=== PATIENT | female | born 1955 | race Caucasian/White ===

== ENCOUNTER 2023-02-09 13:04 | Outpatient (CLI) | payer OTHER, MEDICARE, SELFPAY ==
[2023-02-09 13:46] LABS: Anion Gap 9 mmol/L (8-16); Blood Urea Nitrogen 7 mg/dL (7-17); Calcium 8.8 mg/dL (8.4-10.2); Carbon Dioxide 25 mmol/L (22-30); Chloride 105 mmol/L (98-107); Estimated Glomerular Filt Rate > 60; Glucose 111 mg/dL (65-110); Potassium 3.9 mmol/L (3.4-5.0); Sodium 139 mmol/L (137-145)
== END 2023-02-09 13:05 | disposition home or self-care (01) ==
LOC: ANHSURGERY 13:09
PROVIDERS: Anesthesiology; PCP Nurse Practitioner Family; Visit Provider Surgery
DX: E11.9 Type 2 diabetes mellitus without complications (principal); Z01.818 Encounter for other preprocedural examination
CPT/HCPCS: 36415; 80048

== ENCOUNTER 2023-02-16 03:14 | Day surgery (SDC) | payer MEDICARE, OTHER, SELFPAY ==
[2023-02-08 15:35] VITALS: BMI 34.2
--- NOTE | 2023-02-08 15:44 | PC.NURSE ---
PRE-OP INSTRUCTIONS, PLEASE READ CAREFULLY Report to the Outpatient Waiting Room, entrance under the green pavilion located off [facility], at time _1 PM_ on date _02/16/23_. Planned Procedure Time: _3 PM__. Time changes happen often and if your time is changed the preop area will call you the afternoon before. - You and your visitor will be asked to self-screen and do not enter if you have any COVID symptoms. - A mask is optional within the hospital at this time. Patients may have clear liquids (water, carbonated beverages, clear teas, apple juice) until 3 hours prior to surgery (1200 NOON) with a maximum of 20 ounces. - No food from midnight until time of surgery Take the following medications with a SIP of water the morning of surgery: __NONE____ DO NOT STOP ANY OF YOUR OTHER PRESCRIPTION MEDICATIONS PRIOR TO SURGERY ?EXCEPT THE FOLLOWING Medications to discontinue per physician ____NONE Date to take last dose Please no make-up, nail thai, hairspray, perfume, deodorant, or body powder the day of surgery. No jewelry (including any body piercings) or valuables the day of surgery, leave them at home. Please take a shower or bath the night before, or the morning of, surgery with an antibacterial soap. Wear comfortable, loose fitting clothing. - Jewelry must be removed prior to entering the operating room. Rings and piercings that are not removed may be cut off. - The hospital will not accept responsibility for valuables. - Please leave all valuables, including medications, at home the day of surgery. If you are going home after surgery, a licensed rental car ferry driver must drive you home. - NO public transportation without another adult if you receive anesthesia. - We recommend that an adult stay with you for 24 hours following discharge. - We also recommend that you do not drive, make important decision, drink alcoholic beverages, or take any drugs that were not prescribed by your health care provider for at least 24 hours after your discharge time. Follow any additional instructions given to you from your surgeon. If you or anyone in your household have experienced Covid symptoms in the past week, please notify your surgeon or the nurse liaison at the phone number below for possible testing. Telephone instructions given to _PATIENT_and asked if any additional questions and then verbalized understanding. Patient advised to call surgeon office or pre surgery nurse liaison [phone] if any additional questions.
[2023-02-16 14:16] LABS: Glucose Point of Care 135 mg/dl (65-105)
[2023-02-16 14:30] VITALS: BP 142/81; PULSE 81; RESP 16; TEMP 36.2; O2SAT 99
--- NOTE | 2023-02-16 14:55 | WPDANESEPPF ---
Anes - Initial Pre Proc Eval Procedure: Operation Date: 02/16/23 15:30 Proposed Procedures p Excision Left Posterior Shoulder Subcutaneous Mass - Radames Patricio MD Date/Time: 02/16/23 14:55 Surgeon: Radames Patricio MD Pre Op Diagnosis: left shoulder subcutaneous mass Patient Data Age: 67 Gender: F Height: 1.52 m Weight: 79.54 kg Allergies Allergy/AdvReac Type Severity Reaction Status Date / Time codeine Allergy Unknown UNABLE TO Verified 02/16/23 14:59 RECALL Home Medications Medication Instructions Recorded Confirmed Type metformin 500 mg tablet,extended 500 mg PO BID 02/08/23 02/16/23 History release 24 hr rosuvastatin 10 mg tablet 10 mg DAILY 02/08/23 02/16/23 History Laboratory Tests 02/16/23 14:14 POC Capillary Glucose 135 H mg/dl (65-105) Patient hx anesthesia problems: other (hx difficult intubation - front tooth chipped during prior surgery) Family hx anesthesia problems: none Results Review: All pre-operative results and documents have been reviewed as part of the pre-operative evaluation. FORMERLY [facility], [facility]1983 Past Medical History Medical History (Updated 01/26/23 @ 11:17 by Jeanne Harry) Essential hypertension GERD (gastroesophageal reflux disease) Hyperglycemia Mass of shoulder region Onychomycosis Surgical History Surgical History (Updated 01/26/23 @ 10:42 by Sloane Stephens MA) History of cholecystectomy History of rotator cuff surgery Previous section Social History Social History (Updated 01/26/23 @ 10:48 by Sloane Stephens MA) Smoking status: Never smoker Second hand tobacco smoke exposure: No Alcohol intake: current Drinks per week: 5 Substance use: current Substance use type: marijuana Other substance usage details: EDIBLES 10MG/WEEK Last use: 02/07/23 Living arrangements: with family Occupation/Education: retired Spiritual care concerns: No Anes - Eval Final PreProcedure Day of Procedure 02/16/23 14:55 Patient weight: obese Heart: regular rate and rhythm Lungs: clear to auscultation Airway: Mallampati scale class II Neurological: alert and oriented Last oral intake: >/= 8 hours ASA classification: III Emergent: no Anesthetic plan: proceed Anesthesia type and monitoring: general GIVS and standard monitoring Results Review: All pre-operative results and documents have been reviewed as part of the pre-operative evaluation. Informed Consent: The patient's anesthetic plan and its attendant risks and benefits were discussed with the patient/family/POA. Questions were solicited and answers provided to the satisfaction of the patient/family/POA.
[2023-02-16] MEDS: BUPivacaine HCL 0.5% PF 30 ML VIAL INFILTRATE (16:59)
[2023-02-16] MEDS: LIDO 1%/EPINEPHRINE 1:100,000 50 ML VIAL 10 ML INFILTRATE (16:59)
--- NOTE | 2023-02-16 17:05 | WPDHPUPDATE1 ---
History and Physical Update Update Date/Time: 02/16/23 17:05 History and Physical has been reviewed, including an updated exam of the patient. There are NO changes in the patient's condition. Risks, benefits, and alternatives have been discussed and questions answered. Patient agrees to proceed with procedure.
[2023-02-16 17:13] LABS: Glucose Point of Care 122 mg/dl (65-105)
[2023-02-16] MEDS: LACTATED RINGERS 1,000 ML 30 ML IV CONT ×2 (18:45→19:39)
--- NOTE | 2023-02-16 19:10 | SUR.PREOP ---
PATIENT LEFT FOR THE OR AT 1900.
[2023-02-16 19:39] VITALS: BP 110/73; PULSE 88; RESP 18; O2SAT 96
--- NOTE | 2023-02-16 19:42 | P.OP_ITS ---
Procedure Note - Detailed Date of Procedure 02/16/23 Pre-op Diagnosis left shoulder subcutaneous mass Post-op Diagnosis Same Procedure Performed Excision of posterior left shoulder lipoma. Surgeon Radames Patricio MD [employer] [facility] Anest[facility] MAC Indications Patient is a 67-year-old female presented with a slowly enlarging subcutaneous mass in the posterior left shoulder. Clinically was consistent with a lipoma. She presents now for excision. Findings [id number] lipomatous mass consistent with benign lipoma left posterior shoulder. Lipoma was well encapsulated and limited to the subcutaneous tissues. Description of Procedure After informed consent was obtained patient brought to the operating room where she was placed in the right lateral decubitus position after placement under IV sedation with LMA. There the posterior left shoulder was then prepped and draped in usual sterile fashion. Care was taken make sure all the pressure points well padded. A time-out was then performed correctly identifying the patient as well as procedure to be performed. Site marking was verified and she was given some perioperative IV antibiotics. Then proceeded to anesthetize the area with 1% lidocaine mixed with 0.5% Marcaine with some epinephrine. A transverse incision was then made over the palpable lipomatous mass. Dissection was carried down through the dermis skin with a scalpel electrocautery was used to dissect down through the subcutaneous tissues to the capsule the lipoma was encountered. The lipomas well-circumscribed and with a combination of electrocautery blunt finger dissection the capsule lipoma from the surrounding subcutaneous tissues. I then completely excised out the lipoma from the subcutaneous tissues utilizing the cautery. The lipoma was confined to the subcutaneous tissues. It was measured 5cm in length by 4cm in width by 2cm in depth. It was sent to pathology for examination. I then irrigated out the incision sterile saline solution and hemostasis was achieved electrocautery. Incision was then closed utilizing interrupted 2-0 Vicryl sutures in the deeper subcutaneous tissues. Interrupted 3-0 Vicryl sutures were placed in deep dermal layer. The skin edges were then approximated lies in a running subcuticular 3-0 Monocryl suture. The incision was then cleaned the skin glue was applied. The patient tolerated the procedure well no complications. All sponges, needles, and instrument counts were correct at the end procedure. EBL was _5__cc. The patient was awakened and taken to recovery in stable and satisfactory condition. Implants None Estimated Blood Loss 5 Drains No Packing No Pathology Yes (Lipoma sent to pathology) Complications No immediate complications Condition Stable Disposition PACU [facility] Billing Surgery - Charge Forward: Surgery Billing
[2023-02-16 19:55] LABS: Glucose Point of Care 133 mg/dl (65-105)
[2023-02-16 20:00] VITALS: BP 120/71; PULSE 78; RESP 18
[2023-02-16 20:26] VITALS: BP 119/73; PULSE 77; RESP 16
== END 2023-02-16 20:33 | disposition home or self-care (01) ==
PROVIDERS: PCP Nurse Practitioner Family; Visit Provider Surgery
PROC: (CPT 23071; principal; 2023-02-16 15:30)
DX: D17.22 Benign lipomatous neoplasm of skin and subcutaneous tissue of left arm (principal); K21.9 Gastro-esophageal reflux disease without esophagitis; I10 Essential (primary) hypertension
CPT/HCPCS: 23071; 36415; 80048; 82948; 88304; A9270; J2250; J2405; J2704; J3010; J7120

== ENCOUNTER 2023-09-24 11:15 | Emergency (ER) | payer MEDICARE, OTHER, SELFPAY ==
--- NOTE | ~2023-09-24 | XR_ITS ---
EXAMINATION: [id number] DATE: 09/24/2023 11:46 INDICATION: Right posterior and lateral rib pain post fall from horse TECHNIQUE: A frontal inspiratory view of the chest and 3 views of the right ribs were obtained. COMPARISON: None FINDINGS: Subtle linear lucency corresponding to a nondisplaced fracture at the posterolateral right seventh ri b. There is mild associated underlying suggesting small associated chest wall hematoma. No other airs pace opacities, pulmonary edema, pleural effusion or pneumothorax. The mediastinal silhouette is norm al. Cholecystectomy clips at the right upper quadrant. IMPRESSION: 1. Nondisplaced fracture of the posterolateral right seventh rib. No pneumothorax or other acute card iopulmonary disease. Reviewed, dictated and finalized at location B. IMPRESSION: 1. Nondisplaced fracture of the posterolateral right seventh rib. No pneumothor ax or other acute cardiopulmonary disease.
[2023-09-24 11:26] VITALS: BP 142/78; PULSE 82; RESP 16; TEMP 37.2; O2SAT 99
--- NOTE | 2023-09-24 12:01 | ED.GENADULT ---
HPI - General Adult General Chief complaint: Back Pain/Injury Stated complaint: INJURED R RIBS Time Seen by Provider: 09/24/23 11:52 Source: patient and RN notes reviewed Mode of arrival: ambulatory Limitations: no limitations History of Present Illness HPI narrative: Patient presents today complaining of right posterior rib pain. Five days ago she fell off her horse injuring her ribs. States she had a helmet on and did not sustain head injury. Denies pain anywhere else on her body. Denies shortness of breath. Currently rates her pain 4/10. Related Data Home Medications Medication Instructions Recorded Confirmed dapagliflozin propanediol 10 mg 10 mg DIRECTED 09/24/23 09/24/23 tablet (Farxiga) rosuvastatin 10 mg tablet 10 mg DIRECTED 09/24/23 09/24/23 Allergies Allergy/AdvReac Type Severity Reaction Status Date / Time codeine Allergy Unknown UNABLE TO Verified 03/02/23 10:29 RECALL Review of Systems Review of Systems: CONSTITUTIONAL: Denies body aches, fever, chills, or sweats. EYES: Denies visual changes, redness, or discharge. ENT: Denies rhinorrhea, congestion, sore throat, or otalgia. CARDIOVASCULAR: Denies chest pain, palpitations, or edema. RESPIRATORY: Denies cough or dyspnea. GASTROINTESTINAL: Denies abdominal pain, nausea, vomiting, or diarrhea. GENITOURINARY: Denies dysuria or hematuria. SKIN: Denies rash, itching, or wounds. MUSCULOSKELETAL: + right posterior rib pain NEUROLOGIC: Denies headache, numbness, tingling, or weakness. PSYCH: Denies depression or anxiety. [facility] Past Medical History Medical History Essential hypertension GERD (gastroesophageal reflux disease) Hyperglycemia Mass of shoulder region Onychomycosis Surgical History Surgical History H/O excision of mass L shoulder History of cholecystectomy History of rotator cuff surgery Previous section Social History Social History Smoking status: Never smoker Second hand tobacco smoke exposure: No Alcohol intake: current Drinks per week: 5 Substance use: current Substance use type: marijuana Other substance usage details: EDIBLES 10MG/WEEK Last use: 02/07/23 Living arrangements: with family Occupation/Education: retired Spiritual care concerns: No Comments At time of signature, I have reviewed and agree with nursing past medical, surgical, social and family history unless otherwise noted. Please see nursing chart for further information. There is no relevant family history pertinent to the presenting complaint Exam Narrative: GENERAL: Well-appearing, well-nourished, and in no acute distress. HEAD: Normocephalic, atraumatic. EYES: EOMI. No redness or drainage. ENT: Mucous membranes pink and moist. NECK: Normal AROM. CHEST: No respiratory distress. Clear to auscultation. HEART: Regular rate and rhythm. No murmur appreciated. MUSCULOSKELETAL: Patient refused palpation of the area of pain, unable to assess. EXTREMITIES: Normal range of motion. No edema. SKIN: Warm, dry, no rash. Capillary refill normal. Normal skin turgor. NEURO: No focal deficits. Alert and oriented x3. Gait steady. PSYCH: Normal affect. No signs of depression or anxiety. Course Course Level of Care: Express Care Visit Vital Signs Vital signs: Vital Signs Temperature 98.9 F 09/24/23 11:26 Pulse Rate 82 09/24/23 11:26 Respiratory Rate 16 09/24/23 11:26 Blood Pressure 142/78 H 09/24/23 11:26 Pulse Oximetry 99 09/24/23 11:26 Temperature 98.9 F 09/24/23 11:26 Pulse Rate 82 09/24/23 11:26 Respiratory Rate 16 09/24/23 11:26 Blood Pressure 142/78 H 09/24/23 11:26 Pulse Oximetry 99 09/24/23 11:26 Reviewed Medical Decision Making MDM Narrative Medical decision making n
== END 2023-09-24 12:18 | disposition home or self-care (01) ==
PROVIDERS: Emergency Provider Nurse Practitioner; PCP Internal Medicine
DX: S22.31XA Fracture of one rib, right side, initial encounter for closed fracture (principal); V80.010A Animal-rider injured by fall from or being thrown from horse in noncollision accident, initial encounter; I10 Essential (primary) hypertension; K21.9 Gastro-esophageal reflux disease without esophagitis; F12.90 Cannabis use, unspecified, uncomplicated
CPT/HCPCS: 71101; 99213; G0463

== ENCOUNTER 2024-02-02 09:09 | Outpatient (CLI) | payer MEDICARE, OTHER, SELFPAY ==
--- NOTE | ~2024-02-02 | XR_ITS ---
XR hip LT 2V w AP pelvis Ordering provider: Rony Sanchez MD History: . S32.592A - FOLLOW UP PUBIS FRACTURE 12/24/23 . Comparison: January 05, 2024 FINDINGS: BONES: Fracture of the left inferior pubic ramus. Highly suggestive fracture in the superior pubic ra mus near to the acetabulum. HIP JOINT SPACES: Mild osteoarthritic changes of both hips. SACROILIAC JOINT SPACES/LUMBAR SPINE: The sacroiliac joint spaces are normal. Mild degenerative rojas es of the visualized lower lumbar spine. PUBIC SYMPHYSIS: Pubic symphysitis. SOFT TISSUES: Normal. IMPRESSION: Fracture of the left inferior pubic ramus. Highly suggestive fracture in the superior pubic ramus ambar r to the acetabulum. No significant change from previous examination. Reviewed, dictated and finalized at location A. 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 Highly suggestive fracture in the patel perior pubic ramus near to the acetabulum. No significant change from previous examination.
== END 2024-02-02 09:10 | disposition home or self-care (01) ==
PROVIDERS: PCP Internal Medicine; Visit Provider Orthopaedic Surgery
DX: S32.592A Other specified fracture of left pubis, initial encounter for closed fracture (principal); X58.XXXA Exposure to other specified factors, initial encounter
CPT/HCPCS: 73502

== ENCOUNTER 2024-03-20 08:51 | Outpatient (CLI) | payer MEDICARE, OTHER, SELFPAY ==
--- NOTE | ~2024-03-20 | XR_ITS ---
XR hip LT 2V w AP pelvis Ordering provider: Rony Sanchez MD History: . S33.359B - Other specified fracture of left pubis, initia... . Comparison: None. FINDINGS: BONES: Healing fracture in the left inferior and superior pubic rami. HIP JOINT SPACES: Bilateral hip osteoarthritic changes. SACROILIAC JOINT SPACES/LUMBAR SPINE: The sacroiliac joint spaces are normal. Mild degenerative rojas es of the visualized lower lumbar spine. PUBIC SYMPHYSIS: Normal. SOFT TISSUES: Normal. IMPRESSION: Healing fracture in the left inferior and superior pubic ramus. Reviewed, dictated and finalized at location A. 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
== END 2024-03-20 08:52 | disposition home or self-care (01) ==
PROVIDERS: PCP Internal Medicine; Visit Provider Orthopaedic Surgery
DX: S32.512D Fracture of superior rim of left pubis, subsequent encounter for fracture with routine healing (principal); X58.XXXD Exposure to other specified factors, subsequent encounter
CPT/HCPCS: 73502

== ENCOUNTER 2024-04-28 09:42 | Outpatient (RCR) | payer MEDICARE, OTHER, SELFPAY ==
--- NOTE | 2024-04-28 11:00 | OPREHPOC ---
Outpatient Therapy Plan of Care This is a Multidisciplinary Plan of Care that may contain components documented by all disciplines (PT, OT, and ST.) PT Problem 1 PT Problem #1 Knowledge Deficit PT Goal 1 Goal / Goal Update *indep with HEP Target Visit 5 PT Problem 2 PT Problem #2 Pain PT Goal 1 Goal / Goal Update * pt report pain at worst of 1/10 to increase activity level Target Visit 5 PT Problem 3 PT Problem #3 Impaired Flexibility PT Goal 1 Goal / Goal Update * decreased tightness and pull of L anterior hip with prone knee flexion to 125' Target Visit 5 PT Problem 4 PT Problem #4 Impaired Strength PT Goal 1 Goal / Goal Update * increase strength of L hip abduction, adduction and extension motions to improve stability over L hip, s/p injury: 1* pt perform mat exercises x 20 reps with 3# ankle wt 2* single leg standing 30 seconds with good stability Target Visit 5
--- NOTE | 2024-04-28 11:00 | PTOPEVAL1 ---
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 Her self assessment LE functional scale rating of 26% limitation in activity. She has returned to most all of her normal activities, and continues to have anterior hip pain with hip flexion. With the evaluation: L hip: active ROM is WNL, except anterior hip/quad length with prone knee flexion; only motion that increased her pain was supine L hip flexion at end range of motion; slight weakness over L hip with abduction, adduction and extension motions and single leg standing. Tenderness over L anterior hip/proximal quad tendon. Skilled PT services are indicated to increase strength of L hip and flexibility over anterior hip, modalities to decrease anterior hip spasms and education with progression of HEP. Plan of Care Interventions Hot Pack/Cold Pack,Manual Therapy,Neuro Re- education,Patient/Caregiver Education,Therapeutic Activities,Therapeutic Exercise,Ultrasound PT Services Indicated Yes Treatment Frequency and 1-2x/wk for 5 visits Duration These treatments will address the objective and functional deficits as defined above. The patient will be advanced safely and appropriately in order for the patient to progress towards his/her prior level of function. Additional exercises will be introduced and as well as a comprehensive home exercise program upon discharge, if needed, ?to ensure carryover of functional gains achieved in the clinic. This treatment plan has been reviewed and agreement upon by the patient.
--- NOTE | 2024-06-09 13:56 | PTOPDC ---
Assessment and note entered by Poonam Todd, PT Assessment Status Discharge - Pt Not Present Diagnosis s/p L superior and inferior pubic rami fracture ICD-10 Condition Codes (PT) Pain in left hip M25.552 Onset 12-24-23 Subjective Information pt was not seen this date. Assessment PT Clinical Summary Nancy received the PT evaluation on Apr 28 and did not return for any further treatment. Discharge PT. The goals were not addressed. Plan of Care PT Services Indicated No
== END 2024-06-09 14:38 | disposition home or self-care (01) ==
LOC: ANHPT 09:42
PROVIDERS: PCP Internal Medicine; Visit Provider Physician Assistant Surgical
DX: M25.552 Pain in left hip (principal)
CPT/HCPCS: 97110; 97161

== ENCOUNTER 2025-03-05 12:40 | Outpatient (CLI) | payer MEDICARE, OTHER, SELFPAY ==
--- NOTE | ~2025-03-05 | DEXA_ITS ---
Bone Density Report Name: CAMILA KENYON Age: 69 Sex: Female Ethnicity: White Date of : 1955 Indication: postmenopausal; screening for osteoporosis; prior fracture; Referring Provider: JANAY MARTE Study: Bone densitometry was performed. Exam Date: March 05, 2025 Accession number: [id number] Bone Density: Region BMD T-score Z-score Classification AP Spine(L1-L4) 0.816 -2.1 0.0 Osteopenia Femoral Neck (Left) 0.514 -3.0 -1.2 Osteoporosis Total Hip (Left) 0.722 -1.8 -0.3 Osteopenia Femoral Neck (Right) 0.583 -2.4 -0.6 Osteopenia Total Hip (Right) 0.755 -1.5 0.0 Osteopenia Total Hip Mean 0.738 -1.7 -0.2 Osteopenia World Health Organization criteria for BMD impression classify patients as: Normal (T-score at or above -1.0), Osteopenia (T-score between -1.0 and -2.5), or Osteoporosis (T-score at or below -2.5). 10-year Fracture Risk: FRAX not reported because: Some T-score for Spine Total or Hip Total or Femoral Neck at or below -2.5 Clinical Information Provided by Patient: Has had a low trauma fracture Has used the following medications: Vitamin D Patient maximum height was 60.0 Menopause Age: 50 No regular weight bearing exercise Does not regularly consume dairy products Drinks caffeinated beverages Onset of menses at age 12 Number of children 1 Impression: The patient has established osteoporosis, based on the Left Femoral Neck T-score and the existence of a prior fracture. The patient has risk factors, including: previous fracture. Discussion: HIGH RISK OF FRACTURE. BONE DENSITY IS UNDESIRABLY LOW AT ONE OR MORE SKELETAL SITES, CONSISTENT WITH POSTMENOPAUSAL OSTEOPOROSIS. This patient's lowest T-score, in a patient who has previously fractured, meets the World Health Organization's (WHO) criteria for severe osteoporosis. In untreated patients, the risk of osteoporotic fracture increases approximately two-fold for each 1.0 SD decrease in T-score. Low bone density is not the only risk factor for fracture; also consider factors such as patient's age, frailty or poor health, risk of falling, risk of injury, previous osteoporotic fracture, family history of osteoporosis, cigarette smoking, low body weight, etc. Not everyone with low bone mineral density has osteoporosis; osteomalacia and other metabolic bone disorders should also be considered. Patients who have osteoporosis should be evaluated for specific diseases and conditions (secondary causes) that may cause or contribute to bone loss. The [place] [employer] Endocrinologists (AACE) and National Osteoporosis Foundation (NOF) recommend pharmacologic intervention for all postmenopausal women whose T-score is in this range. The patient should follow a healthful lifestyle (good nutrition with adequate calcium and vitamin D, and appropriate weight-bearing exercise). Follow-Up: Consider a repeat BMD and Vertebral Fracture Assessment (VFA) exam in 2 years or sooner if medically necessary, to reassess this patient's status. Reported by: ESTEVAN on 03/05/2025 1:28:00 PM. Reviewed, dictated and finalized at location A.
== END 2025-03-05 12:41 | disposition home or self-care (01) ==
PROVIDERS: PCP Internal Medicine; Visit Provider Internal Medicine Endocrinology, Diabetes & Metabolism
DX: Z78.0 Asymptomatic menopausal state (principal); M85.80 Other specified disorders of bone density and structure, unspecified site
CPT/HCPCS: 77080